=== PATIENT | male | born 1995 | race Caucasian/White ===

== ENCOUNTER 2017-10-31 14:10 | Emergency (ER) | payer OTHER ==
[~2017-10-31] VITALS: Ht 175.3 cm; Wt 83.9 kg
[2017-10-31 14:36] VITALS: BP 156/95
--- NOTE | 2017-10-31 14:43 | PHYS DOC ---
Adult General Chief Complaint Chief Complaint: FOOT INJURY PAIN HPI HPI Patient is a 22 year old male who presents with complaint of puncture wound to the left foot. Patient states that he was removing nails from a board when a board that had a nail sticking out accidentally fell, striking the patient on top of the left foot. Patient states that the nail went through the top of his athletic shoe and pierced the dorsum of the left fourth MTP joint. Patient denies that the nail went completely through his foot. Patient denies any other injuries currently. Patient states that he last received a tetanus booster 7 years ago. Patient states that he is able to move the toe normally but that it is sore at this time. Review of Systems Review of Systems Constitutional: Denies fever or chills [] Eyes: Denies change in visual acuity, redness, or eye pain [] HENT: Denies nasal congestion or sore throat []ls or diarrhea [] Musculoskeletal: Puncture wound to left foot[] Integument: Denies rash or skin lesions [] Neurologic: Denies headache, focal weakness or sensory changes [] All other systems were reviewed and found to be within normal limits, except as documented in this note. Current Medications Current Medications Current Medications Medications (Trade) Dose Ordered Sig/Luis F Start Time Stop Time Status Last Admin Dose Admin Diphtheria/ Tetanus/Acell Pertussis (Boostrix) 0.5 ml ONCE ONCE 10/31/17 15:00 10/31/17 15:01 Allergies Allergies Allergies Coded Allergies Type Severity Reaction Last Updated Verified No Known Drug Allergies 10/31/17 No Physical Exam Physical Exam Constitutional: Well developed, well nourished, no acute distress, non-toxic appearance. [] HENT: Normocephalic, atraumatic, bilateral external ears normal, oropharynx moist, no oral exudates, nose normal. [] Skin: Warm, dry, no erythema, no rash. [] Back: No tenderness, no CVA tenderness. [] Extremities: Half centimeter puncture wound to the dorsum of left fourth MTP with no subcutaneous gaping of wound, no cyanosis, no clubbing, ROM intact, no edema. [] Neurologic: Alert and oriented X 3, normal motor function, normal sensory function, no focal deficits noted. [] Current Patient Data Vital Signs Vital Signs Date Time Temp Pulse Resp B/P (MAP) Pulse Ox O2 Delivery O2 Flow Rate FiO2 4/5/18 14:36 98.1 88 18 99 Room Air EKG EKG Not performed[] Radiology/Procedures Radiology/Procedures [address] [address] IMAGING REPORT Signed PATIENT: JESSI LIVINGSTON ACCOUNT: [id number] : 1995 LOCATION: ER AGE: 22 SEX: M EXAM STATUS: REG ER ORD. PHYSICIAN: ADAM BILLS MD REASON: puncture wound by nail through dorsum of foot that second MTP telly PROCEDURE: FOOT LEFT 3V History: Nail puncture wound to the dorsum of the foot at the 2nd MTP. Comparison: None. Findings: AP, lateral, and oblique views of left foot. No acute fracture or dislocation is identified. No focal soft tissue swelling is seen. No radiopaque foreign body is appreciated. No soft tissue gas is seen. Impression: No acute osseous abnormality identified. Electronically signed by: Dre Rhoades MD (10/31/2017 2:51 PM) [place] [id number] DICTATED AND SIGNED BY: DRE RHOADES MD DATE: 10/31/17 2578 CC: ADAM BILLS MD; PCP,NO ~ [] Course & Med Decision Making Course & Med Decision Making Pertinent Labs and Imaging studies reviewed. (See chart for details) Patient's wound was cleaned and dressed in the emergency department. X-rays negative for fracture or foreign body. Tdap administered in the emergency department at today's visit. Patient discharged with prescription for Keflex for prophylaxis. Advised follow-up in 3-5 days with primary doctor for reevaluation. Advised return emergency department for any worsening symptoms. Patient voiced understanding and in agreement with treatment plan. Dragon Disclaimer Dragon Disclaimer This electronic medical record was generated, in whole or in part, using a voice recognition dictation system. Departure Departure: Impression: Primary Impression: Puncture wound of foot, left Disposition: 01 HOME, SELF-CARE Condition: GOOD Referrals: PCP,NO (PCP) Patient Instructions: Puncture Wound Additional Instructions: Follow-up to primary doctor in the next 3-5 days for reevaluation. You received a tetanus booster at today's visit. Return to emergency department for any worsening symptoms. Scripts Cephalexin (KEFLEX) 500 Mg Capsule 1 CAP PO BID, #10 CAP Prov: ADAM BILLS MD 10/31/17 Problem Qualifiers Primary Impression: Puncture wound of foot, left Encounter type: initial encounter Qualified Codes: S91.332A - Puncture wound without foreign body, left foot, initial encounter ADAM BILLS MD Oct 31, 2017 14:43
[2017-10-31] MEDS ORDERED: CEPH-264 PO (14:45)
--- NOTE | 2017-10-31 14:53 | RAD ---
History: Nail puncture wound to the dorsum of the foot at the 2nd MTP. Comparison: None. Findings: AP, lateral, and oblique views of left foot. No acute fracture or dislocation is identified. No focal soft tissue swelling is seen. No radiopaque foreign body is appreciated. No soft tissue gas is seen. Impression: No acute osseous abnormality identified. Electronically signed by: Dre Rhoades MD (10/31/2017 2:51 PM) [place] [id number]
[2017-10-31] MEDS ORDERED: DIPHTH,PERTUSS(ACELL),TET TOX 0.5 ML DISP.SYRIN. VAX IM ONE (15:00)
== END 2017-10-31 14:54 | disposition home or self-care (01) ==
LOC: ER 14:10
DX: S91.332A Puncture wound without foreign body, left foot, initial encounter (principal); W45.0XXA Nail entering through skin, initial encounter; Y93.89 Activity, other specified; Y99.8 Other external cause status; Y92.89 Other specified places as the place of occurrence of the external cause
CPT/HCPCS: 73630; 90471; 90715; 99284-25

== ENCOUNTER 2019-08-05 07:46 | Emergency (ER) | payer SELFPAY ==
[~2019-08-05 07:46] MED LIST: CEPH-264 PO
[2019-08-05 07:54] VITALS: BP 140/89
[2019-08-05] MEDS ORDERED: IV NORMAL SALINE 1,000ML 1,000 ML IV ONE (08:15)
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
[2019-08-05 08:34] LABS: BASO # 0.1 x10^3/uL (0.0-0.2); BASO % 1 % (0-3); EOS # 0.2 x10^3/uL (0.0-0.7); EOS % 3 % (0-3); HEMATOCRIT 43.9 % (39.0-53.0); LYMPH # 1.9 x10^3/uL (1.0-4.8); LYMPH % 27 % (24-48); MEAN CORPUSCULAR HEMOGLOBIN 31 pg (25-35); MEAN CORPUSCULAR HGB CONC 34 g/dL (31-37); MEAN CORPUSCULAR VOLUME 91 fL (79-100); MONO # 0.7 x10^3/uL (0.0-1.1); MONO % 9 % (0-9); NEUT # 4.3 x10^3uL (1.8-7.7); NEUT % 60 % (31-73); PLATELET COUNT 214 x10^3/uL (140-400); RED BLOOD COUNT 4.84 x10^6/uL (4.30-5.70); RED CELL DISTRIBUTION WIDTH 13.4 % (11.5-14.5); WHITE BLOOD COUNT 7.1 x10^3/uL (4.0-11.0)
[2019-08-05 08:40] LABS: CALCIUM 8.5 mg/dL (8.5-10.1); GFR 93.4; POTASSIUM 3.9 mmol/L (3.5-5.1)
[2019-08-05 08:46] LABS: ALBUMIN 3.6 g/dL (3.4-5.0); ALBUMIN/GLOBULIN RATIO 1.2 (1.0-1.7); TOTAL BILIRUBIN 0.3 mg/dL (0.2-1.0); TOTAL PROTEIN 6.7 g/dL (6.4-8.2)
--- NOTE | 2019-08-05 16:34 | EKG ---
[address] [address] Test Date: 2019-08-05 Test Time: 07:55:57 Pat Name: JESSI LIVINGSTON Department: Room: Gender: M [employer]: : 1995 Requested By: DUSTY SWANN Order Number: [id number] Reading MD: Measurements Intervals [place] Rate: 83 P: 42 CA: 148 QRS: 98 QRSD: 88 T: 34 QT: 352 QTc: 414 Interpretive Statements SINUS RHYTHM RIGHTWARD AXIS OTHERWISE NORMAL ECG RI6.01 No previous ECG available for comparison
== END 2019-08-05 09:06 | disposition home or self-care (01) ==
LOC: ER 07:46
DX: R07.89 Other chest pain (principal)
CPT/HCPCS: 36415; 71046; 80053; 84484; 85025; 93005; 99285-25; J7030

== ENCOUNTER 2021-01-23 15:18 | Emergency (ER) | payer SELFPAY ==
[~2021-01-23] VITALS: Ht 175.3 cm; Wt 104.8 kg
[2021-01-23 15:27] VITALS: BP 147/97
[2021-01-23] MEDS ORDERED: CEPHALEXIN 250 MG CAPSULE PO ONE (15:45)
[2021-01-23] MEDS ORDERED: CEPH500C PO ×2 (15:52→16:01)
--- NOTE | 2021-01-23 15:53 | PHYS DOC ---
Past History Past Medical History: No Pertinent History Past Surgical History: No Surgical History Alcohol Use: Heavy Drug Use: None Adult General Chief Complaint Chief Complaint: ABSCESS HPI HPI Patient is a 25-year-old male who presents to the emergency department with a chief complaint of a lump to his right thigh patient states it was not painful until he started squeezing it thinking it was a boil. Patient states he could not get any pus to come out. Patient states he became concerned and came to the ER today for an evaluation. Patient denies any allergies to medications, states he takes no medications at home. Patient states he does not have a primary care physician. Patient denies numbness or tingling to his right thigh or leg. States he has had 1 abscess years ago but it went away on its own. Patient denies recent fever or chills, denies any history of immunosuppressive diseases, patient denies any recent illnesses, patient denies any other physical complaints or physical concerns. Review of Systems Review of Systems 14 body systems of review of systems have been reviewed. See HPI for pertinent positives and negative responses, otherwise all other systems are negative, nonpertinent or noncontributory. Allergies Allergies Allergies Coded Allergies Type Severity Reaction Last Updated Verified No Known Drug Allergies 01/23/21 No Physical Exam Physical Exam Constitutional: Well developed, well nourished, no acute distress, non-toxic appearance. 25-year-old male in no apparent distress. HENT: Normocephalic, atraumatic. No lymphadenopathy of the head or neck appreciated. Eyes: Conjunctive are normal, no discharge appreciated. Neck: Normal range of motion, no tenderness, supple, no stridor. No meningismus signs, no nuchal rigidity appreciated. Cardiovascular: Distal cap refill less than 2 seconds, no cyanosis appreciated. Lungs & Thorax: Patient is in no respiratory distress, no adventitious lung sounds appreciated audibly. Skin: Warm, dry, no erythema, no rash. Back: No tenderness, no CVA tenderness. Extremities: No tenderness, no cyanosis, no clubbing, ROM intact, no edema. Except for right inguinal area there is a 4 cm in diameter area of induration without erythema or central punctum, it is not draining, it is not fluctuant, no pain to palpation. Neurologic: Alert and oriented X 3, normal motor function, normal sensory function, no focal deficits noted. Psychologic: Affect normal, judgement normal, mood normal. Current Patient Data Vital Signs Vital Signs Date Time Temp Pulse Resp B/P (MAP) Pulse Ox O2 Delivery O2 Flow Rate FiO2 01/23/21 15:27 97.9 96 18 147/97 (114) 98 Room Air EKG EKG [] Radiology/Procedures Radiology/Procedures [] Heart Score C/O Chest Pain: No Risk Factors: Risk Factors: DM, Current or recent (<one month) smoker, HTN, HLP, family history of CAD, obesity. Risk Scores: Risk Factors: DM, Current or recent (<one month) smoker, HTN, HLP, family history of CAD, obesity. Course & Med Decision Making Course & Med Decision Making Pertinent Labs and Imaging studies reviewed. (See chart for details) 25-year-old male, vital signs reviewed, presents emergency department with a chief complaint of a lump on his right upper thigh. Physical examination concerning for swollen lymph node/lymphadenopathy of the right inguinal area. The patient was nontoxic in appearance, vital signs were within normal limits, the patient was not febrile, labs not indicated during today's visit. Related to patient's reported length of time of complaint, will start on Keflex 500 mg 4 times a day x7 days. Will recommend warm compresses 3-4 times a day for comfort and to help reduce size of swelling. Will recommend strict follow-up with primary care for ongoing evaluation. Discussed findings with patient, patient is asking for work excuse for the rest of today or tomorrow. Patient gave verbal understanding of discharge home instructions, follow-up with primary care this week for reevaluation, return to ER precautions or concerns, patient had no further questions or concerns and was discharged home without incident. Dragon Disclaimer Dragon Disclaimer This electronic medical record was generated, in whole or in part, using a voice recognition dictation system. Departure Departure: Impression: Primary Impression: Lymphadenopathy Disposition: HOME / SELF CARE / HOMELESS Condition: GOOD Referrals: PCP,NO (PCP) Additional Instructions: You were seen today in the emergency department for a hard lump on your right upper thigh. This does not appear to be an abscess, this does not need drained. This appears to be a swollen lymph node, as you indicated it did not really hurt or bother you much until you started manipulating it. Please do not try to squeeze the area or push on the area, please apply warm compresses daily to assist in reducing the size. I am starting you on an antibiotic that you will take 4 times a day. Please take as directed until complete. You have indicated that you do not have a primary care provider, please consider using the [facility] group located at [address] [place] [address]. [address] [place] [address], their telephone number is [phone]. I have given you a work excuse for today and tomorrow. Please take this time to apply warm compresses 3-4 times a day. Please return to the emergency department for worsening symptoms or other concerns. EMERGENCY DEPARTMENT GENERAL DISCHARGE INSTRUCTIONS Thank you for coming to [facility] (ED) today and trusting us with you care. We trust that you had a positivie experience in our Emergency Department. If you wish to speak to the department management, you may call the director at [phone]. YOUR FOLLOW UP INSTRUCTIONS ARE FOLLOWS: 1. Do you have a private Doctor? If you do not have a private doctor, please ask for a resource list of physicians or clinics that may be able to assist you with follow up care. 2. The Emergency Physician has interpreted your x-rays. The X-Ray specialist will also review them. If there is a change in the findings, you will be notified in 48 hours when at all possible. 3. A lab test or culture has been done, your results will be reviewed and you will be notified if you need a change in treatment. ADDITIONAL INSTRUCTIONS AND INFORMATION: 1. Your care today has been supervised by a physician who is specially trained in emergency care. Many problems require more than one evaluation for a complete diagnosis and treatment. We recommend that you schedule your follow up appointment as recommended to ensure complete treatment of you illness or injury. If you are unable to obtain follow up care and continue to have a problem, or if your condition worsens, we recommend that you return to the ED. 2. We are not able to safely determine your condition over the phone nor are we able to give sound medical advice over the phone. For these safety reasons, if you call for medical advice we will ask you to come to the ED for further evaluation. 3. If you have any questions regarding these discharge instructions please call the ED at [phone]. SAFETY INFORMATION: In the interest of safety, wellness, and injury prevention; we encourage you to wear your sealbelt, if you smoke; quite smoking, and we encourage family to use a prote ctive helmet for bicycling and other sporting events that present an increased risk for head injury. IF YOUR SYMPTOMS WORSEN OR NEW SYMPTOMS DEVELOP, OR YOU HAVE CONCERNS ABOUT YOUR CONDITION; OR IF YOUR CONDITION WORSENS WHILE YOU ARE WAITING FOR YOUR FOLLOW UP APPOINTMENT; EITHER CONTACT YOUR PRIMARY CARE DOCTOR, THE PHYSICIAN WHOSE NAME AND NUMBER YOU WERE GIVEN, OR RETURN TO THE ED IMMEDIATELY. Scripts Cephalexin (CEPHALEXIN) 500 Mg Capsule 1 CAP PO QID for swollen lypmhnode for 7 Days, #28 CAP Prov: ILAN JOYNER APRN 01/23/21 ILAN JOYNER APRN Jan 23, 2021 15:52
== END 2021-01-23 16:00 | disposition home or self-care (01) ==
LOC: ER 15:18
DX: R59.1 Generalized enlarged lymph nodes (principal)
CPT/HCPCS: 99283